=== PATIENT | female | born 1995 | race Caucasian/White ===

== ENCOUNTER 2018-02-17 20:44 | Emergency (ER) | payer MEDICAID ==
[~2018-02-17] VITALS: Ht 177.8 cm; Wt 42.2 kg
[~2018-02-17 20:44] MED LIST: CHOL200010 PO; NITR-85 PO
[2018-02-17 20:55] VITALS: BP_SYST 121
[2018-02-17] MEDS ORDERED: BACITRACIN 1 GM OINT TP ONE (22:00)
[2018-02-17 22:29] VITALS: BP_SYST 120
== END 2018-02-17 22:29 | disposition home or self-care (01) ==
LOC: SED 20:44
DX: Z48.01 Encounter for change or removal of surgical wound dressing (principal); Z91.040 Latex allergy status
CPT/HCPCS: 71046-TC; 99284

== ENCOUNTER 2018-02-24 14:51 | Emergency (ER) | payer MEDICAID ==
[~2018-02-24] VITALS: Ht 175.3 cm; Wt 41.3 kg
[2018-02-24 14:51] VITALS: BP_SYST 123
[2018-02-24] MEDS ORDERED: MORPHINE 4 MG/ML INJ. SYRINGE IVP ONE (15:15)
[2018-02-24 15:39] VITALS: BP_SYST 118
== END 2018-02-24 15:41 | disposition home or self-care (01) ==
LOC: SED 14:51
DX: R07.89 Other chest pain (principal); F41.9 Anxiety disorder, unspecified; Z91.040 Latex allergy status
CPT/HCPCS: 71046-TC; 99284

== ENCOUNTER 2018-11-08 20:37 | Emergency (ER) | payer BC, MEDICAID ==
[~2018-11-08] VITALS: Ht 175.3 cm; Wt 46.7 kg
[~2018-11-08 20:37] MED LIST changes: -CHOL200010 PO; +CHOL20004 PO; -NITR-85 PO
[2018-11-08 20:50] VITALS: BP_SYST 121
[2018-11-08] MEDS ORDERED: NACL 0.9% 1,000 ML IV ONE (21:00)
[2018-11-08 21:48] LABS: BASOPHILS % (AUTO) 0.9 % (0.0-2.0); EOSINOPHILS # (AUTO) 0.1 K/uL (0.0-0.4); EOSINOPHILS % (AUTO) 1.5 % (0.0-4.0); HEMATOCRIT 40.3 % (36-48); HEMOGLOBIN 13.3 g/dL (12.0-16.0); LYMPHOCYTES # (AUTO) 1.9 K/uL (1.0-5.5); LYMPHOCYTES % (AUTO) 41.2 % (20.5-51.5); MEAN CORPUSCULAR HEMOGLOBIN 30 pg (27-31); MEAN CORPUSCULAR HGB CONC 33 % (32-36); MEAN CORPUSCULAR VOLUME 90 fL (79.0-98.0); MONOCYTES # (AUTO) 0.5 K/uL (0.0-1.0); MONOCYTES % (AUTO) 10.8 % (1.7-9.3); NEUTROPHILS # (AUTO) 2.2 K/uL (1.8-7.7); NEUTROPHILS % (AUTO) 45.6 % (40.0-70.0); PLATELET COUNT (AUTO) 245 K/uL (130-430); RED BLOOD CELL COUNT(AUTO) 4.48 MIL/uL (4.2-6.2); RED CELL DISTRIBUTION WIDTH 11.8 % (9.0-15.0); WHITE BLOOD COUNT (AUTO) 4.7 K/uL (4.8-10.8)
[2018-11-08 21:56] LABS: CALCIUM 8.9 mg/dL (8.4-11.0); CREATININE 0.64 mg/dL (0.55-1.30); POTASSIUM 3.8 mmol/L (3.5-5.1)
[2018-11-08 22:05] LABS: ALBUMIN 3.9 g/dL (3.4-4.8); TOTAL BILIRUBIN 0.9 mg/dL (0.0-1.0)
[2018-11-08] MEDS ORDERED: MORPHINE 4 MG/ML INJ. SYRINGE IVP ONE (22:30)
[2018-11-08 23:30] VITALS: BP_SYST 121
== END 2018-11-08 23:30 | disposition home or self-care (01) ==
LOC: SED 20:37
DX: N94.6 Dysmenorrhea, unspecified (principal); F41.9 Anxiety disorder, unspecified; Z91.040 Latex allergy status
CPT/HCPCS: 36415; 76830; 76857; 80053; 84702; 85025; 85610; 85730; 96361; 96374; 99284; J2270; J7030

== ENCOUNTER 2019-02-09 21:01 | Emergency (ER) | payer BC, MEDICAID ==
[~2019-02-09] VITALS: Ht 175.3 cm; Wt 45.4 kg
[2019-02-09 21:09] VITALS: BP_SYST 105
[2019-02-09 21:41] LABS: BILIRUBIN,URINE NEGATIVE (NEGATIVE); BLOOD, URINE 3+ (NEGATIVE); CLARITY/URINE CLOUDY (CLEAR); COLOR,URINE RED (YELLOW); GLUCOSE,URINE NEGATIVE (NEGATIVE); KETONES,URINE TRACE (NEGATIVE); LEUKOCYTE ESTERASE ,URINE 3+ (NEGATIVE); NITRITE, URINE POSITIVE (NEGATIVE); PH,URINE 5.5 (5.0-8.0); PROTEIN URINE 3+ (NEGATIVE); UROBILINOGEN,URINE 0.2 (0.2-1.0)
[2019-02-09] MEDS ORDERED: PHENAZOPYRIDINE HCL 100 MG TABLET PO ONE (21:45)
[2019-02-09] MEDS ORDERED: CEPHALEXIN 500 MG CAPSULE PO ONE (21:45)
[2019-02-09 21:52] LABS: BACTERIA,URINE MODERATE /HPF (None Seen); RBC,URINE >100 /HPF (0-3); WBC,URINE 20-50 /HPF (0-3)
[2019-02-09 21:53] LABS: MUCUS,URINE None Seen /LPF (None Seen)
== END 2019-02-09 21:40 | disposition home or self-care (01) ==
LOC: SED 21:01
DX: N39.0 Urinary tract infection, site not specified (principal); F41.9 Anxiety disorder, unspecified; Z91.040 Latex allergy status
CPT/HCPCS: 81000-TC; 87086; 87186-TC; 99283

== ENCOUNTER 2019-09-25 17:42 | Emergency (ER) | payer BC ==
[~2019-09-25] VITALS: Ht 175.3 cm; Wt 44.5 kg
[2019-09-25 18:26] VITALS: BP_SYST 97
--- NOTE | 2019-09-25 20:05 | NUR ---
Patient to ER bed hallway to gown for evaluation. Side rails up.
--- NOTE | 2019-09-25 20:10 | NUR ---
Pt brought by friend, A&Ox4, pt presents to ER with sore throa , bodyaches, cough and congestion, skin pink and warm, cap refill <3.
--- NOTE | 2019-09-25 20:35 | NUR ---
Dr Quesada at bedside examining patient
[2019-09-25 21:19] VITALS: BP_SYST 100
--- NOTE | 2019-09-25 21:19 | NUR ---
Patient given written and verbal discharge instructions and verbalizes understanding. ER MD discussed with patient the results and treatment provided. Patient in stable condition. ID arm band removed. Rx of Tamiflu and Promethazine HCL/Dextromethorphan given. Patient educated on pain management and to follow up with PMD. Pain Scale 2/10. Opportunity for questions provided and answered.
== END 2019-09-25 21:19 | disposition home or self-care (01) ==
LOC: SED 17:42
DX: J10.1 Influenza due to other identified influenza virus with other respiratory manifestations (principal); Z91.040 Latex allergy status
CPT/HCPCS: 36415; 71045; 81002; 81025; 86710; 99284